=== PATIENT | female | born 1975 | race Caucasian/White ===

== ENCOUNTER 2017-11-15 08:22 | Emergency (ER) | payer OTHER ==
[2017-11-15 08:32] VITALS: BP 126/80
--- NOTE | 2017-11-15 08:39 | ED Physician Documentation ---
History of Present Illness - Stated complaint Stated Complaint: FEVER/SORE THROAT - Chief complaint Chief Complaint: Heent - Additonal information Additional information: hx from pt healthy not 42 female sore throat fever myalgias no cough NVD no sick contacts Review of Systems Constitutional: reports: Fever, Myalgias Throat: reports: Sore throat Respiratory: denies: Cough GI: denies: Abdominal Pain, Nausea, Vomiting, Diarrhea : denies: Now EGA (denies) Skin: denies: Rash Neurologic: reports: Headache Immunocompromised: denies: Immunocompromised PD PAST MEDICAL HISTORY - Past Medical History Past Medical History: Yes Cardiovascular: None Respiratory: None Neuro: Headache/migraine Endocrine/Autoimmune: None GI: None : None HEENT: None Psych: Depression, Anxiety Musculoskeletal: None Derm: None - Past Surgical History Past Surgical History: Yes 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, 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 HEENT: Other Derm: Skin cancer surgery - Present Medications Home Medications: Ambulatory Orders Medication Instructions Recorded Confirmed Atenolol 25 mg PO DAILY 07/20/14 11/15/17 Citalopram [CeleXA] 10 mg PO DAILY 07/20/14 11/15/17 buPROPion [Wellbutrin Xl] 150 mg PO DAILY 07/20/14 11/15/17 Amoxicillin 500 mg PO Q8H #30 capsule 11/15/17 Dextromethorphan/Benzocaine 1 each PO Q4H PRN #20 lozenge 11/15/17 [Cepacol Sorethroat-Cough [place]] - Allergies Allergies/Adverse Reactions: Allergies Allergy/AdvReac Type Severity Reaction Status Date / Time shellfish derived AdvReac Severe Anaphylaxis Verified 11/15/17 08:33 - Social History Does the pt smoke?: No Smoking Status: Never smoker Does the pt drink ETOH?: No Does the pt have substance abuse?: No - Immunizations Immunizations are current?: Yes - POLST Patient has POLST: No PD ED PE NORMAL - Vitals Vital signs reviewed: Yes - General General: Alert and oriented X 3 - HEENT HEENT: PERRL. 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 No: No adenopathy (anterior L . R no posterior ) - Cardiac Cardiac: RRR - Respiratory Respiratory: No respiratory distress, Clear bilaterally - Abdomen Abdomen: Soft, Non tender, No organomegaly - Derm Derm: Normal color - Neuro Neuro: Alert and oriented X 3 Results - Vitals Vitals: Vital Signs - 24 hr 11/15/17 08:22 Temperature 37 C Heart Rate 120 H Respiratory 18 Rate Blood Pressure 126/80 O2 Saturation 95 Oxygen O2 Source Room air PD MEDICAL DECISION MAKING - ED course ED course: meets centor criteria - will tx no cough or GI sx to suggest influenza - and would not merit tamiflu as she is healthy and not HR notes and felt 2/2 pain and perhaps some dehydration - s/sx not concerning for sepsis Departure - Departure Disposition: Home, Self Care Clinical Impression: Pharyngitis, acute Qualifiers: Pharyngitis/tonsillitis etiology: streptococcus Qualified Code(s): J02.0 - Streptococcal pharyngitis Condition: Good Instructions: ED Strep Pharyngitis Poss Follow-Up: [facility] [Primary Care Provider] - Prescriptions: Amoxicillin 500 mg PO Q8H #30 capsule Dextromethorphan/Benzocaine [Cepacol Sorethroat-Cough [place]] 1 each PO Q4H PRN # 20 lozenge PRN Reason: sore throat Comments: Tylenol and motrin for pain and fever Drink plenty of fluids Follow up with your PMD if not better Return to the ER if worse Forms: Activity restrictions
== END 2017-11-15 08:50 | disposition home or self-care (01) ==
LOC: ED 08:22
DX: J02.0 Streptococcal pharyngitis (principal); E86.0 Dehydration
CPT/HCPCS: 87430; 99283

== ENCOUNTER 2017-11-23 17:27 | Emergency (ER) | payer OTHER ==
[2017-11-23 17:35] VITALS: BP 115/68
--- NOTE | 2017-11-23 18:06 | XRAY Report ---
EXAM: LEFT ANKLE RADIOGRAPHY EXAM DATE: 11/23/2017 05:57 PM. CLINICAL HISTORY: Pain and swelling. S/p surgical repair with pins. COMPARISON: 07/20/2014. TECHNIQUE: 3 views. FINDINGS: Bones: Trimalleolar fracture fixation with fracture lines no longer visible. Intact fibular plate and multiple screws, with lucency along the long transverse screw from fibular plate into the tibia. Joints: Normal. No effusion. No subluxations. The ankle mortise is normally aligned. Soft Tissues: Unremarkable. IMPRESSION: Lucency along the long transverse screw possibly representing loosening. [facility] Referring Provider Line: [phone] SITE ID: [id number]
[2017-11-23 20:09] LABS: BASOPHILS # (AUTO) 0.1 10^3/uL (0.0-0.1); EOSINOPHILS # (AUTO) 0.2 10^3/uL (0.0-0.7); EOSINOPHILS % (AUTO) 1.9 %; HGB - HEMOGLOBIN 11.6 g/dL (12.0-16.0); LYMPHOCYTES # (AUTO) 3.3 10^3/uL (1.5-3.5); LYMPHOCYTES % (AUTO) 37.6 %; MEAN CORPUSCULAR HEMOGLOBIN 23.5 pg (27.0-31.0); MEAN CORPUSCULAR HGB CONC 31.4 g/dL (32.0-36.0); MEAN CORPUSCULAR VOLUME 74.7 fL (81.0-99.0); MONOCYTES # (AUTO) 0.6 10^3/uL (0.0-1.0); MONOCYTES % (AUTO) 6.3 %; NEUTROPHILS # (AUTO) 4.7 10^3/uL (1.5-6.6); NEUTROPHILS % (AUTO) 53.2 %; PLT - PLATELET COUNT 445 10^3/uL (130-450); RED BLOOD COUNT 4.96 10^6/uL (4.20-5.40); RED CELL DISTRIBUTION WIDTH 15.9 % (12.0-15.0); WHITE BLOOD COUNT 8.7 x10^3/uL (4.8-10.8)
[2017-11-23 20:26] LABS: BUN - BLOOD UREA NITROGEN 14 mg/dL (6-20); CALCIUM 8.9 mg/dL (8.5-10.3); CARBON DIOXIDE - CO2 24 mmol/L (21-32); CHLORIDE 105 mmol/L (101-111); CREATININE 0.8 mg/dL (0.4-1.0); GFR - MDRD 79 (>89); GLUCOSE 100 mg/dL (70-100); SODIUM 136 mmol/L (135-145)
[2017-11-23 20:30] LABS: CRP - C-REACTIVE PROTEIN < 1.0 mg/dL (0-1.0)
--- NOTE | 2017-11-23 20:57 | ED Physician Documentation ---
History of Present Illness - Stated complaint Stated Complaint: LT ANKLE SWELLING/PX - Chief complaint Chief Complaint: Ext Problem - History obtained from History obtained from: Patient, Family - History of Present Illness Timing: Today Pain level max: 5 Pain level now: 3 Improved by: rest Worsened by: walking - Additonal information Additional information: Patient is a 42-year-old female who presents to the emergency department after she sustained a trimalleolar fracture several years ago and underwent open reduction internal fixation. Over the past day or so she has had increasing pain in the left ankle and noticed some swelling. [place] that there is mild erythema to the skin as well. No fevers. She was recently treated with amoxicillin for a throat infection. 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 HEENT: Other Derm: Skin cancer surgery - Present Medications Home Medications: Ambulatory Orders Medication Instructions Recorded Confirmed Atenolol 25 mg PO DAILY 07/20/14 11/23/17 Citalopram [CeleXA] 10 mg PO DAILY 07/20/14 11/23/17 buPROPion [Wellbutrin Xl] 150 mg PO DAILY 07/20/14 11/23/17 Amoxicillin 500 mg PO Q8H #30 capsule 11/15/17 11/23/17 Cetirizine [ZyrTEC] 10 mg PO DAILY 11/23/17 11/23/17 - Allergies Allergies/Adverse Reactions: Allergies Allergy/AdvReac Type Severity Reaction Status Date / Time shellfish derived AdvReac Severe Anaphylaxis Verified 11/23/17 19:18 - Social History Does the pt smoke?: No Smoking Status: Never smoker Does the pt drink ETOH?: No Does the pt have substance abuse?: No - Immunizations Immunizations are current?: Yes - POLST Patient has POLST: No PD ED PE NORMAL - Vitals Vital signs reviewed: Yes - General General: Alert and oriented X 3, No acute distress - Derm Derm: Warm and dry - Extremities Extremities: Other (L ankle - mild swelling. no skin changes in coloration or temperature. No drainage. good ROM without significant pain.) - Neuro Neuro: Alert and oriented X 3 Results - Vitals Vitals: Vital Signs - 24 hr 11/23/17 17:31 Temperature 36.7 C Heart Rate 81 Respiratory 16 Rate Blood Pressure 115/68 O2 Saturation 98 Oxygen O2 Source Room air - Labs Labs: Laboratory Tests 11/23/17 11/23/17 11/23/17 19:58 19:58 19:58 WBC 8.7 RBC 4.96 Hgb 11.6 L Hct 37.1 MCV 74.7 L MCH 23.5 L MCHC 31.4 L RDW 15.9 H Plt Count 445 MPV 7.0 L Neut # 4.7 Lymph # 3.3 [place] # 0.6 Eos # 0.2 Baso # 0.1 Absolute Nucleated RBC 0.00 Nucleated RBC % 0.0 ESR 29 H Sodium 136 Potassium 4.2 Chloride 105 Carbon Dioxide 24 Anion Gap 7.0 BUN 14 Creatinine 0.8 Estimated GFR (MDRD) 79 L Glucose 100 Calcium 8.9 C-Reactive Protein < 1.0 - Rads (name of study) L ankle xray Radiology: Prelim report reviewed, EMP read contemporaneously, See rad report ( Lucency along the long transverse screw possibly representing loosening. ) PD MEDICAL DECISION MAKING - ED course Complexity details: reviewed results, re-evaluated patient, considered differential, d/w patient, d/w intelligence consultant ED course: Patient is a 42-year-old female presents to the emergency department with left ankle pain after having an ORIF from a trimalleolar fracture or several years ago. No evidence of septic joint. No evidence of overlying cellulitis. Discussed the case with orthopedics Dr. Hyde, who recommends follow-up in the office. Patient is comfortable with this plan. Declines pain medication here or for home. Patient counseled regarding signs and symptoms for which I believe and urgent re-evaluation would be necessary. Patient with good understanding of and agreement to plan and is comfortable going home at this time This document was made in part using voice recognition software. While efforts are made to proofread this document, sound alike and grammatical errors may occur. Departure - Departure Disposition: Home, Self Care Clinical Impression: Loosening of orthopedic screw Condition: Good Follow-Up: [facility] [Provider Group] - Within 1 week Comments: Return if you worsen especially fevers, worsening pain or redness. You need to follow up with orthopedics for further evaluation of the loose screw as this may be causing your pain. Discharge Date/Time: 11/23/17 21:07
== END 2017-11-23 21:07 | disposition home or self-care (01) ==
LOC: ED 17:27
DX: T84.218A Breakdown (mechanical) of internal fixation device of other bones, initial encounter (principal)
CPT/HCPCS: 36415; 80048; 85025; 85651; 86140; 99282; 99283

== ENCOUNTER 2018-05-15 18:13 | Emergency (ER) | payer OTHER ==
[2018-05-15 18:19] VITALS: BP 118/100
[2018-05-15] MEDS ORDERED: AMOX/CLAV 875 MG/125 MG TABLET PO STA (18:26)
--- NOTE | 2018-05-15 18:28 | ED Physician Documentation ---
PD HPI HEENT - Stated complaint Stated Complaint: SINUS INFECTION/PX - Chief complaint Chief Complaint: Heent - History obtained from History obtained from: Patient - History of Present Illness Timing - onset: Other (Earlier in the month had strep throat s/p 10 days PCN. Got better but now with >1 week L adenopathy and ear pain. No fevers. No congestion, no hearing loss.) Review of Systems Constitutional: denies: Fever, Chills Ears: reports: Ear pain. 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 HEENT: Other Derm: Skin cancer surgery - Present Medications Home Medications: Ambulatory Orders Medication Instructions Recorded Confirmed Atenolol 25 mg PO DAILY 07/20/14 11/23/17 Citalopram [CeleXA] 10 mg PO DAILY 07/20/14 11/23/17 buPROPion [Wellbutrin Xl] 150 mg PO DAILY 07/20/14 11/23/17 Amoxicillin 500 mg PO Q8H #30 capsule 11/15/17 11/23/17 Cetirizine [ZyrTEC] 10 mg PO DAILY 11/23/17 11/23/17 Amox/Clav 875/125 [Augmentin] 1 each PO Q12H #20 tablet 05/15/18 Guaifenesin/Pseudoephedrne HCl 1 each PO BID PRN #20 tab.er.12h 05/15/18 [Mucinex D ER 600-60 mg Tablet] - Allergies Allergies/Adverse Reactions: Allergies Allergy/AdvReac Type Severity Reaction Status Date / Time shellfish derived AdvReac Severe Anaphylaxis Verified 11/23/17 19:18 - Social History Does the pt smoke?: No Smoking Status: Never smoker Does the pt drink ETOH?: No Does the pt have substance abuse?: No - Immunizations Immunizations are current?: Yes - POLST Patient has POLST: No PD ED PE NORMAL - Vitals Vital signs reviewed: Yes - General General: Alert and oriented X 3, No acute distress - HEENT HEENT: Other (L TM retracted. No otitis though. The throat looks normal save for mild peritonsillar redness but no asymmetry. She does have a tender submandibular gland on the left. No facial swelling or facial cellulitis. No neck stiffness.) - Neck Neck: Supple, no meningeal sign, No bony TTP - Neuro Neuro: Alert and oriented X 3, Normal speech - Psych Psych: Normal mood, Normal affect Results - Vitals Vitals: Vital Signs - 24 hr 05/15/18 18:15 Temperature 36.5 C Heart Rate 84 Respiratory 18 Rate Blood Pressure 118/100 H O2 Saturation 100 Oxygen O2 Source Room air PD MEDICAL DECISION MAKING - Sepsis Event Vital Signs: Vital Signs - 24 hr 05/15/18 18:15 Temperature 36.5 C Heart Rate 84 Respiratory 18 Rate Blood Pressure 118/100 H O2 Saturation 100 Oxygen O2 Source Room air Departure - Departure Disposition: Home, Self Care Clinical Impression: Lymphadenitis Condition: Good Record reviewed to determine appropriate education?: Yes Instructions: ED Cervical Adenitis Abx Tx Prescriptions: Amox/Clav 875/125 [Augmentin] 1 each PO Q12H #20 tablet Guaifenesin/Pseudoephedrne HCl [Mucinex D ER 600-60 mg Tablet] 1 each PO BID PRN #20 tab.er.12h PRN Reason: congestion Comments: Call your doctor to arrange a follow-up appointment, make the next available appointment. In the interim, return anytime if worse or if new symptoms develop. Your blood pressure was elevated today on check into the emergency department. This does not mean that you have hypertension, it is a common phenomenon to come to the emergency department and have elevated blood pressure. I recommend that you see your primary care physician within the week to have it rechecked when you are feeling better.
== END 2018-05-15 18:34 | disposition home or self-care (01) ==
LOC: ED 18:13
DX: I88.9 Nonspecific lymphadenitis, unspecified (principal); R03.0 Elevated blood-pressure reading, without diagnosis of hypertension
CPT/HCPCS: 99283; A9270

== ENCOUNTER 2019-04-16 17:34 | Emergency (ER) | payer OTHER ==
--- NOTE | 2019-04-16 17:58 | ED Physician Documentation ---
PD HPI CHEST PAIN - Stated complaint Stated Complaint: SOA/CP,R SHOULDER PX - Chief complaint Chief Complaint: Abd Pain - History obtained from History obtained from: Patient - History of Present Illness Timing - onset: Today Timing - onset during: Light activity Timing - duration: Minutes (30) Timing - details: Abrupt onset Severity Comments: Pain is essentially gone now Quality: Sharp Location: Substernal Radiation: Other (Right shoulder) Improved by: Nothing Associated symptoms: Shortness of air, Diaphoresis, Nausea. 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 She felt very short of breath with that she felt like she needed to burp she was really sweaty and clammy so she thought she might need to go to the bathroom she went into the bathroom and tried to poop but was not able to and it did not seem to alleviate the pain. Pain was about a 5-6 out of 10. The onset was about 30 minutes ago when she got frightened enough that she decided to come into the emergency department. The pain is now resolved but she still has some discomfort in the right shoulder. She never vomited. She is never had anything like this before. She did not feel dizzy. Couple days ago she had a little sore throat but that has been fine and her daughter was seen here in the emergency department this morning and diagnosed with an ear infection. Pain did radiate to her back right around the bra strap. She had eaten approximately 8 hours prior to the onset of the pain. Does not have a history of reflux. Review of Systems Constitutional: reports: Sweats. denies: Fever, Chills Nose: denies: Congestion Throat: reports: Sore throat Cardiac: reports: Chest pain / pressure, Palpitations Respiratory: reports: Dyspnea. denies: Cough GI: reports: Abdominal Pain, Nausea. denies: Vomiting, Diarrhea : reports: Other (Denies stating that she status post tubal ligation). 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 HEENT: Other Derm: Skin cancer surgery - Present Medications Home Medications: Ambulatory Orders Medication Instructions Recorded Confirmed Atenolol 25 mg PO DAILY 07/20/14 11/23/17 Citalopram [CeleXA] 10 mg PO DAILY 07/20/14 11/23/17 buPROPion [Wellbutrin Xl] 150 mg PO DAILY 07/20/14 11/23/17 Amoxicillin 500 mg PO Q8H #30 capsule 11/15/17 11/23/17 Cetirizine [ZyrTEC] 10 mg PO DAILY 11/23/17 11/23/17 Amox/Clav 875/125 [Augmentin] 1 each PO Q12H #20 tablet 05/15/18 Guaifenesin/Pseudoephedrne HCl 1 each PO BID PRN #20 tab.er.12h 05/15/18 [Mucinex D ER 600-60 mg Tablet] - Allergies Allergies/Adverse Reactions: Allergies Allergy/AdvReac Type Severity Reaction Status Date / Time shellfish derived AdvReac Severe Anaphylaxis Verified 04/16/19 17:38 - Social History Does the pt smoke?: No Smoking Status: Never smoker Does the pt drink ETOH?: No Does the pt have substance abuse?: No - Immunizations Immunizations are current?: Yes - POLST Patient has POLST: No PD ED PE NORMAL - Vitals Vital signs reviewed: Yes - General General: Alert and oriented X 3, No acute distress, Well developed/nourished, Other (Patient is upset and actually crying.) - HEENT HEENT: Atraumatic, PERRL - Cardiac Cardiac: RRR, No murmur - Respiratory Respiratory: No respiratory distress, Clear bilaterally - Abdomen Abdomen: Normal bowel sounds, Soft, Non tender, Other (Obese) - Back Back: No CVA TTP - Derm Derm: Normal color, Warm and dry, No rash - Extremities Extremities: No deformity - Neuro Neuro: Alert and oriented X 3, No motor deficit, No sensory deficit, Normal speech Results - Vitals Vitals: Vital Signs - 24 hr 04/16/19 04/16/19 04/16/19 17:35 17:58 19:52 Temperature 36.9 C 36.7 C Heart Rate 94 78 83 Respiratory 22 20 17 Rate Blood Pressure 128/78 135/80 H 125/68 O2 Saturation 100 99 100 Oxygen O2 Source Room air - EKG (time done) 1747 Rate: Rate (enter#) Rhythm: NSR Ischemia: Normal ST segments Other comments: Other comments (Inverted P wave in lead aVF And V3 through V6) Compare to prior EKG: Old EKG unavailable - Labs Labs: Laboratory Tests 04/16/19 04/16/19 04/16/19 18:41 18:51 18:51 WBC 11.2 H RBC 4.55 Hgb 10.7 L Hct 34.6 L MCV 76.1 L MCH 23.5 L MCHC 30.9 L RDW 16.1 H Plt Count 391 MPV 7.5 L Neut # (Auto) 8.3 H Lymph # (Auto) 2.0 [place] # (Auto) 0.6 Eos # (Auto) 0.3 Baso # (Auto) 0.1 Absolute Nucleated RBC 0.00 Nucleated RBC % 0.0 Sodium 135 Potassium 4.2 Chloride 103 Carbon Dioxide 23 Anion Gap 9.0 BUN 12 Creatinine 0.8 Estimated GFR (MDRD) 78 L Glucose 124 H Calcium 8.8 Total Bilirubin 0.8 AST 77 H ALT 34 Alkaline Phosphatase 108 Troponin I Total Protein 7.7 Albumin 3.8 Globulin 3.9 Albumin/Globulin Ratio 1.0 Lipase 45 Urine Color YELLOW Urine Clarity CLEAR Urine pH 6.5 Ur Specific [place] 1.020 Urine Protein NEGATIVE Urine Glucose (UA) NEGATIVE Urine Ketones NEGATIVE Urine Occult Blood NEGATIVE Urine Nitrite NEGATIVE Urine Bilirubin NEGATIVE Urine Urobilinogen 0.2 (NORMAL) Ur Leukocyte Esterase NEGATIVE Ur Microscopic Review NOT INDICATED Urine Culture Comments NOT INDICATED 04/16/19 18:51 WBC RBC Hgb Hct MCV MCH MCHC RDW Plt Count MPV Neut # (Auto) Lymph # (Auto) [place] # (Auto) Eos # (Auto) Baso # (Auto) Absolute Nucleated RBC Nucleated RBC % Sodium Potassium Chloride Carbon Dioxide Anion Gap BUN Creatinine Estimated GFR (MDRD) Glucose Calcium Total Bilirubin AST ALT Alkaline Phosphatase Troponin I < 0.04 Total Protein Albumin Globulin Albumin/Globulin Ratio Lipase Urine Color Urine Clarity Urine pH Ur Specific [place] Urine Protein Urine Glucose (UA) Urine Ketones Urine Occult Blood Urine Nitrite Urine Bilirubin Urine Urobilinogen Ur Leukocyte Esterase Ur Microscopic Review Urine Culture Comments PD MEDICAL DECISION MAKING - ED course Complexity details: re-evaluated patient, d/w patient, d/w family ED course: Patient had an IV started and was given Pepcid 20 mg IV. Her abdominal pain was essentially gone by the time she arrived in the emergency department anyway she was still having some right shoulder discomfort but no pain with palpation. Her AST was very minimally elevated but normal white blood cell count normal bilirubin and normal lipase. Chest x-ray showed some gas in the bowel just under the diaphragm but no acute changes. Results of the labs and the x-ray were discussed with the patient. I have encouraged her to follow-up with her primary care provider and consideration of gallbladder ultrasound and avoiding fatty, fried or spicy foods. Would also consider use of MiraLAX or laxativeTo help clear out the bowels. Departure - Departure Disposition: 01 Home, Self Care Clinical Impression: Abdominal pain Qualifiers: Abdominal location: right upper quadrant Qualified Code(s): R10.11 - Right upper quadrant pain Condition: Good Instructions: ED Abdominal Pain Unkn Cause Follow-Up: [facility] [Provider Group] Comments: Avoid fatty, fried or overly spicy foods. You can try to take a laxative or MiraLAX to help clear the bowel for constipation. I would recommend follow-up with your primary care provider especially if you have recurrent symptoms because you may need to have an ultrasound done on your gallbladder to ensure that you do not have gallstones. Return if the pain returns and lasts for longer than 30 minutes or is associated with fever, vomiting or other problems.
[2019-04-16] MEDS ORDERED: FAMOTIDINE 20 MG/2 ML VIAL IVP STA (18:20)
[2019-04-16 18:56] LABS: BILIRUBIN,URINE NEGATIVE (NEGATIVE); CLARITY,URINE CLEAR (CLEAR); GLUCOSE, URINE (UA) NEGATIVE (NEGATIVE); KETONES,URINE (UA) NEGATIVE (NEGATIVE); LEUKOCYTE ESTERASE, URINE NEGATIVE (NEGATIVE); NITRITE,URINE NEGATIVE (NEGATIVE); OCCULT BLOOD,URINE NEGATIVE (NEGATIVE); PH,URINE 6.5 PH (5.0-7.5); PROTEIN,URINE NEGATIVE (NEGATIVE); UROBILINOGEN,URINE 0.2 (NORMAL) E.U./dL (NORMAL)
--- NOTE | 2019-04-16 18:59 | XRAY Report ---
Reason: cough Procedure Date: 04/16/2019 Accession Number: [id number] / [id number] Procedure: XR - Chest 2 View X-Ray CPT Code: 06484 FULL RESULT: EXAM: CHEST RADIOGRAPHY EXAM DATE: 04/16/2019 06:46 PM. CLINICAL HISTORY: Cough. Chest pain. COMPARISON: None. TECHNIQUE: 2 views. FINDINGS: Lungs/Pleura: No focal opacities evident. No pleural effusion. No pneumothorax. Normal volumes. Mediastinum: Heart and mediastinal contours are unremarkable. Other: Mild degenerative changes of the thoracic spine. IMPRESSION: 1. No acute disease in the chest. [facility]
[2019-04-16 19:04] LABS: BASOPHILS # (AUTO) 0.1 10^3/uL (0.0-0.1); BASOPHILS % (AUTO) 0.5 %; EOSINOPHILS # (AUTO) 0.3 10^3/uL (0.0-0.7); EOSINOPHILS % (AUTO) 2.4 %; HGB - HEMOGLOBIN 10.7 g/dL (12.0-16.0); LYMPHOCYTES % (AUTO) 17.7 %; MEAN CORPUSCULAR HEMOGLOBIN 23.5 pg (27.0-31.0); MEAN CORPUSCULAR HGB CONC 30.9 g/dL (32.0-36.0); MEAN CORPUSCULAR VOLUME 76.1 fL (81.0-99.0); MEAN PLATELET VOLUME 7.5 fL (7.9-10.8); MONOCYTES # (AUTO) 0.6 10^3/uL (0.0-1.0); NEUTROPHILS # (AUTO) 8.3 10^3/uL (1.5-6.6); NEUTROPHILS % (AUTO) 74.4 %; PLT - PLATELET COUNT 391 10^3/uL (130-450); RED BLOOD COUNT 4.55 10^6/uL (4.20-5.40); RED CELL DISTRIBUTION WIDTH 16.1 % (12.0-15.0); WHITE BLOOD COUNT 11.2 x10^3/uL (4.8-10.8)
[2019-04-16 19:18] LABS: ALBUMIN 3.8 g/dL (3.2-5.5); BILIRUBIN,TOTAL 0.8 mg/dL (0.2-1.0); CALCIUM 8.8 mg/dL (8.5-10.3); CREATININE 0.8 mg/dL (0.4-1.0); TOTAL PROTEIN 7.7 g/dL (6.7-8.2)
[2019-04-16 20:26] VITALS: BP 119/75
== END 2019-04-16 20:27 | disposition home or self-care (01) ==
LOC: ED 17:34
DX: R10.11 Right upper quadrant pain (principal); M25.511 Pain in right shoulder
CPT/HCPCS: 36415; 71046; 80053; 81001; 81003; 83690; 84484; 85025; 87086; 93005; 96374; 99283

== ENCOUNTER 2019-05-09 18:24 | Emergency (ER) | payer OTHER ==
[2019-05-09 18:28] VITALS: BP 132/96
--- NOTE | 2019-05-09 18:46 | ED Physician Documentation ---
PD HPI URI - Stated complaint Stated Complaint: LT EAR PX - Chief complaint Chief Complaint: Heent - History obtained from History obtained from: Patient - History of Present Illness Timing - onset: Today (She has had pain from the left ear and echoing in her hearing just on the left today without other URI symptoms or fevers.) Review of Systems Constitutional: denies: Fever, Chills Eyes: denies: Loss of vision, Decreased vision Nose: denies: Rhinorrhea / runny nose, Congestion PD PAST MEDICAL HISTORY - Past Medical History Cardiovascular: None Respiratory: None Endocrine/Autoimmune: None GI: None : None HEENT: None Psych: Depression, Anxiety Musculoskeletal: None Derm: None - Past Surgical History Past Surgical History: Yes 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, 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 HEENT: Other Derm: Skin cancer surgery - Present Medications Home Medications: Ambulatory Orders Medication Instructions Recorded Confirmed Atenolol 25 mg PO DAILY 07/20/14 11/23/17 Citalopram [CeleXA] 10 mg PO DAILY 07/20/14 11/23/17 buPROPion [Wellbutrin Xl] 150 mg PO DAILY 07/20/14 11/23/17 Amoxicillin 500 mg PO Q8H #30 capsule 11/15/17 11/23/17 Cetirizine [ZyrTEC] 10 mg PO DAILY 11/23/17 11/23/17 Amox/Clav 875/125 [Augmentin] 1 each PO Q12H #20 tablet 05/15/18 Guaifenesin/Pseudoephedrne HCl 1 each PO BID PRN #20 tab.er.12h 05/15/18 [Mucinex D ER 600-60 mg Tablet] Neomycin/Polymyx/Hc Otic Drops 4 drops OT TID #1 bottle 05/09/19 [Cortisporin Ear Susp] - Allergies Allergies/Adverse Reactions: Allergies Allergy/AdvReac Type Severity Reaction Status Date / Time shellfish derived AdvReac Severe Anaphylaxis Verified 04/16/19 17:38 - Social History Does the pt smoke?: No Smoking Status: Never smoker Does the pt drink ETOH?: No Does the pt have substance abuse?: No - Immunizations Immunizations are current?: Yes - POLST Patient has POLST: No PD ED PE NORMAL - Vitals Vital signs reviewed: Yes - General General: Alert and oriented X 3, No acute distress - HEENT HEENT: Other (Left external otitis without mastoid tenderness. TMs are normal. Oropharynx is normal.) - Neck Neck: Supple, no meningeal sign, No bony TTP - Neuro Neuro: Alert and oriented X 3, Normal speech Results - Vitals Vitals: Vital Signs - 24 hr 05/09/19 18:26 Temperature 36.6 C Heart Rate 100 Respiratory 16 Rate Blood Pressure 132/96 H O2 Saturation 98 Oxygen O2 Source Room air Departure - Departure Disposition: Home, Self Care Clinical Impression: External otitis of left ear Qualifiers: Otitis externa type: other infective Chronicity: acute Qualified Code(s): H60.392 - Other infective otitis externa, left ear Condition: Good Record reviewed to determine appropriate education?: Yes Health Concerns: Left ear pain Plan of Treatment: Topical antibiotic/anti-inflammatory drops in the left ear Instructions: ED Otitis Externa Prescriptions: Neomycin/Polymyx/Hc Otic Drops [Cortisporin Ear Susp] 4 drops OT TID #1 bottle Comments: Call your doctor to arrange a follow-up appointment, make the next available appointment. In the interim, return anytime if worse or if new symptoms develop.
== END 2019-05-09 18:50 | disposition home or self-care (01) ==
LOC: ED 18:24
DX: H60.392 Other infective otitis externa, left ear (principal)
CPT/HCPCS: 99283

== ENCOUNTER 2019-08-08 17:48 | Emergency (ER) | payer OTHER ==
[2019-08-08 18:07] LABS: BASOPHILS # (AUTO) 0.1 10^3/uL (0.0-0.1); BASOPHILS % (AUTO) 0.5 %; EOSINOPHILS # (AUTO) 0.2 10^3/uL (0.0-0.7); EOSINOPHILS % (AUTO) 2.6 %; HGB - HEMOGLOBIN 10.5 g/dL (12.0-16.0); LYMPHOCYTES # (AUTO) 2.8 10^3/uL (1.5-3.5); LYMPHOCYTES % (AUTO) 30.2 %; MEAN CORPUSCULAR HEMOGLOBIN 23.1 pg (27.0-31.0); MEAN CORPUSCULAR HGB CONC 29.7 g/dL (32.0-36.0); MEAN CORPUSCULAR VOLUME 77.8 fL (81.0-99.0); MEAN PLATELET VOLUME 9.5 fL (7.9-10.8); MONOCYTES # (AUTO) 0.7 10^3/uL (0.0-1.0); MONOCYTES % (AUTO) 7.2 %; NEUTROPHILS # (AUTO) 5.5 10^3/uL (1.5-6.6); PLT - PLATELET COUNT 428 10^3/uL (130-450); RED BLOOD COUNT 4.54 10^6/uL (4.20-5.40); RED CELL DISTRIBUTION WIDTH 16.8 % (12.0-15.0); WHITE BLOOD COUNT 9.3 x10^3/uL (4.8-10.8)
[2019-08-08 18:20] LABS: BILIRUBIN,URINE NEGATIVE (NEGATIVE); GLUCOSE, URINE (UA) NEGATIVE (NEGATIVE); KETONES,URINE (UA) NEGATIVE (NEGATIVE); LEUKOCYTE ESTERASE, URINE NEGATIVE (NEGATIVE); NITRITE,URINE NEGATIVE (NEGATIVE); OCCULT BLOOD,URINE NEGATIVE (NEGATIVE); PH,URINE 5.5 PH (5.0-7.5); PROTEIN,URINE NEGATIVE (NEGATIVE); UROBILINOGEN,URINE 0.2 (NORMAL) E.U./dL (NORMAL)
[2019-08-08 18:20] LABS: ALBUMIN 3.9 g/dL (3.2-5.5); BILIRUBIN,TOTAL 0.7 mg/dL (0.2-1.0); CREATININE 0.7 mg/dL (0.4-1.0); TOTAL PROTEIN 7.8 g/dL (6.7-8.2)
[2019-08-08 18:23] LABS: CLARITY,URINE CLEAR (CLEAR); HCG UR QUAL NEGATIVE
[2019-08-08] MEDS ORDERED: NAPROXEN 250 MG TABLET PO STA (18:24)
--- NOTE | 2019-08-08 18:27 | ED Physician Documentation ---
PD HPI ABD PAIN - Stated complaint Stated Complaint: S/P GALLBLADDER SX PX - Chief complaint Chief Complaint: Abd Pain - History obtained from History obtained from: Patient - History of Present Illness Timing - onset: Today (She is a week out from a laparoscopic cholecystectomy. She was doing well postop until today and she developed right upper quadrant pain/chest pain that is much worse if she takes a deep breath. She denies nausea. She is mildly constipated but moving her bowels. No shortness of breath or fevers.) Review of Systems Ten Systems: 10 systems reviewed and negative Constitutional: denies: Fever, Chills Cardiac: reports: Chest pain / pressure. 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 HEENT: Other Derm: Skin cancer surgery - Present Medications Home Medications: Ambulatory Orders Medication Instructions Recorded Confirmed Atenolol 25 mg PO DAILY 07/20/14 11/23/17 Citalopram [CeleXA] 10 mg PO DAILY 07/20/14 11/23/17 buPROPion [Wellbutrin Xl] 150 mg PO DAILY 07/20/14 11/23/17 Amoxicillin 500 mg PO Q8H #30 capsule 11/15/17 11/23/17 Cetirizine [ZyrTEC] 10 mg PO DAILY 11/23/17 11/23/17 Amox/Clav 875/125 [Augmentin] 1 each PO Q12H #20 tablet 05/15/18 Guaifenesin/Pseudoephedrne HCl 1 each PO BID PRN #20 tab.er.12h 05/15/18 [Mucinex D ER 600-60 mg Tablet] Neomycin/Polymyx/Hc Otic Drops 4 drops OT TID #1 bottle 05/09/19 [Cortisporin Ear Susp] - Allergies Allergies/Adverse Reactions: Allergies Allergy/AdvReac Type Severity Reaction Status Date / Time shellfish derived AdvReac Severe Anaphylaxis Verified 08/08/19 17:55 - Social History Does the pt smoke?: No Smoking Status: Never smoker Does the pt drink ETOH?: No Does the pt have substance abuse?: No - Family History Family history: reports: Non contributory - Immunizations Immunizations are current?: Yes - POLST Patient has POLST: No PD ED PE NORMAL - Vitals Vital signs reviewed: Yes - General General: Alert and oriented X 3, Other (She winces with deep breathing, otherwise in no distress at rest.) - HEENT HEENT: PERRL, EOMI - Neck Neck: Supple, no meningeal sign, No bony TTP - Cardiac Cardiac: RRR, No murmur - Respiratory Respiratory: No respiratory distress, Clear bilaterally - Abdomen Abdomen: Other (Minimal and appropriate right-sided abdominal tenderness with clean dry and intact laparoscopic incisions) - Back Back: No CVA TTP, No spinal TTP - Derm Derm: Normal color, Warm and dry - Extremities Extremities: No edema, No calf tenderness / cord - Neuro Neuro: Alert and oriented X 3, Normal speech Results - Vitals Vitals: Vital Signs - 24 hr 08/08/19 17:54 Temperature 36.5 C Heart Rate 86 Respiratory 18 Rate Blood Pressure 124/82 H O2 Saturation 100 Oxygen O2 Source Room air - Labs Labs: Laboratory Tests 08/08/19 08/08/19 08/08/19 18:03 18:03 18:12 WBC 9.3 RBC 4.54 Hgb 10.5 L Hct 35.3 L MCV 77.8 L MCH 23.1 L MCHC 29.7 L RDW 16.8 H Plt Count 428 MPV 9.5 Neut # (Auto) 5.5 Lymph # (Auto) 2.8 [place] # (Auto) 0.7 Eos # (Auto) 0.2 Baso # (Auto) 0.1 Absolute Nucleated RBC 0.00 Nucleated RBC % 0.0 Sodium 136 Potassium 4.0 Chloride 102 Carbon Dioxide 25 Anion Gap 9.0 BUN 11 Creatinine 0.7 Estimated GFR (MDRD) 91 Glucose 126 H Calcium 9.0 Total Bilirubin 0.7 AST 19 ALT 19 Alkaline Phosphatase 80 Total Protein 7.8 Albumin 3.9 Globulin 3.9 Albumin/Globulin Ratio 1.0 Lipase 33 Urine Color YELLOW Urine Clarity CLEAR Urine pH 5.5 Ur Specific [place] <=1.005 Urine Protein NEGATIVE Urine Glucose (UA) NEGATIVE Urine Ketones NEGATIVE Urine Occult Blood NEGATIVE Urine Nitrite NEGATIVE Urine Bilirubin NEGATIVE Urine Urobilinogen 0.2 (NORMAL) Ur Leukocyte Esterase NEGATIVE Ur Microscopic Review NOT INDICATED Urine Culture Comments NOT INDICATED Urine HCG, Qual NEGATIVE - Rads (name of study) CTA Chest/CT Abd Radiology: EMP read contemporaneously (NAD) PD MEDICAL DECISION MAKING - ED course ED course: 44-year-old woman with right upper quadrant/right lower chest pain status post surgery. Both PE and postsurgical complication are considered but there is no evidence of same on CT imaging or labs. There was a large volume of stool load in the right upper quadrant to my eye and this is treated with magnesium citrate Departure - Departure Disposition: 01 Home, Self Care Clinical Impression: Chest wall pain following surgery Abdominal pain Qualifiers: Abdominal location: right upper quadrant Qualified Code(s): R10.11 - Right upper quadrant pain Condition: Good Record reviewed to determine appropriate education?: Yes Instructions: Abdominal Pain Comments: As discussed, there is no evidence of blood clots or surgical complication on labs or imaging. Return for new or worsening symptoms. I think with the magnesium citrate she will have a large bowel movement and feel better.
[2019-08-08] MEDS ORDERED: IOVERSOL 320 100 ML VIAL IVP ONE (18:38)
--- NOTE | 2019-08-08 19:50 | CT Report ---
Reason: IV only, RUQ pain s/p cholecystectomy Procedure Date: 08/08/2019 Accession Number: [id number] / [id number] Procedure: CT - ABDOMEN W CPT Code: FULL RESULT: EXAM: CT ABDOMEN EXAM DATE: 08/08/2019 06:59 PM. CLINICAL HISTORY: IV only, RUQ pain s/p cholecystectomy. COMPARISON: None. TECHNIQUE: Routine helical CT imaging was performed through the abdomen. IV contrast: 100 cc Optiray 320 Enteric contrast: No. Reconstruction: Coronal and sagittal. In accordance with CT protocol optimization, one or more of the following dose reduction techniques were utilized for this exam: automated exposure control, adjustment of mA and/or KV based on patient size, or use of iterative reconstructive technique. FINDINGS: Lung Bases: Unremarkable. Liver: Normal. No masses. Gallbladder/Bile Ducts: Surgically absent. No ductal dilation. No fluid collection in the gallbladder fossa. Spleen: Normal. Pancreas: Normal. Adrenal Glands: Normal. Kidneys: Small bilateral cysts. Otherwise unremarkable. No stone or hydronephrosis. Peritoneal Cavity/Bowel: Normal. Scattered trace free air, residual from recent surgery. No free fluid, significant free air, or adenopathy. No masses or acute inflammatory process. Normal appendix. Vasculature: No aneurysms or other significant abnormality. Bones: Partial sacralization of L5 on the left. No pseudarthrosis. Degenerative disk disease at L4-L5. Other: None. IMPRESSION: 1. Postoperative changes with no abnormal fluid collection, abscess, or other apparent complication. 2. Partial transitional vertebra and other chronic or incidental findings. RADIA
--- NOTE | 2019-08-08 20:23 | CT Report ---
Reason: PE protocol, R chest Procedure Date: 08/08/2019 Accession Number: [id number] / [id number] Procedure: CT - ANGIO CHEST W/WO CPT Code: FULL RESULT: EXAM: CT ANGIOGRAM CHEST EXAM DATE: 08/08/2019 06:59 PM. CLINICAL HISTORY: Right-sided chest and abdominal pain after cholecystectomy. COMPARISON: ABDOMEN W/ 08/08/2019 6:49 PM. TECHNIQUE: Routine helical imaging was performed through the chest in the pulmonary arterial phase. IV Contrast: 100 cc Optiray 320. Reconstructions: Coronal 3-D MIP reconstructions.Sagittal and coronal. In accordance with CT protocol optimization, one or more of the following dose reduction techniques were utilized for this exam: automated exposure control, adjustment of mA and/or KV based on patient size, or use of iterative reconstructive technique. FINDINGS: Diagnostic quality: Adequate Pulmonary embolism: None Right heart strain: None Pulmonary arteries: The main pulmonary artery is enlarged. Heart: Unremarkable Aorta: Unremarkable Central airways: Unremarkable Lung parenchyma: Unremarkable Pleural effusion: None Pneumothorax: None Esophagus: Small hiatal hernia. Adenopathy: None Imaged abdomen: Unremarkable Sidewalls: Unremarkable Bones: No suspicious osseous lesions. IMPRESSION: 1. No acute pulmonary embolism. 2. Enlargement of the main pulmonary artery which is nonspecific but can be seen in pulmonary hypertension. 3. Small hiatal hernia. RADIA
[2019-08-08] MEDS ORDERED: MAGNESIUM CITRATE 296 ML BOTTLE PO STA (20:29)
[2019-08-08 20:35] VITALS: BP 126/76
== END 2019-08-08 20:37 | disposition home or self-care (01) ==
LOC: ED 17:48
DX: R10.11 Right upper quadrant pain (principal); R07.89 Other chest pain; K59.00 Constipation, unspecified; Z98.890 Other specified postprocedural states
CPT/HCPCS: 36415; 71275; 74160; 80053; 81003; 81025; 83690; 85025; 99282; 99284; A9270; Q9967; 81001; 87086

== ENCOUNTER 2020-09-28 17:22 | Emergency (ER) | payer OTHER ==
[2020-09-28 17:44] VITALS: BP 129/74
[2020-09-28] MEDS ORDERED: TETANUS/DIPHTHERIA/PERTUSSIS 0.5 ML SYRINGE IM ONE (18:00)
--- NOTE | 2020-09-28 18:01 | ED Physician Documentation ---
History of Present Illness - Stated complaint Stated Complaint: FINGER LAC - Chief complaint Chief Complaint: Laceration - History obtained from History obtained from: Patient - History of Present Illness Timing: Today Pain level max: 1 Pain level now: 0 - Additonal information Additional information: L thumb laceration with a knife while cutting tomatoes. Better with pressure. Worse with movement. 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 HEENT: Other Derm: Skin cancer surgery - Present Medications Home Medications: Ambulatory Orders Medication Instructions Recorded Confirmed Atenolol 25 mg PO DAILY 07/20/14 11/23/17 Citalopram [CeleXA] 10 mg PO DAILY 07/20/14 11/23/17 buPROPion [Wellbutrin Xl] 150 mg PO DAILY 07/20/14 11/23/17 Amoxicillin 500 mg PO Q8H #30 capsule 11/15/17 11/23/17 Cetirizine [ZyrTEC] 10 mg PO DAILY 11/23/17 11/23/17 Amox/Clav 875/125 [Augmentin] 1 each PO Q12H #20 tablet 05/15/18 Guaifenesin/Pseudoephedrne HCl 1 each PO BID PRN #20 tab.er.12h 05/15/18 [Mucinex D ER 600-60 mg Tablet] Neomycin/Polymyx/Hc Otic Drops 4 drops OT TID #1 bottle 05/09/19 [Cortisporin Ear Susp] - Allergies Allergies/Adverse Reactions: Allergies Allergy/AdvReac Type Severity Reaction Status Date / Time shellfish derived AdvReac Severe Anaphylaxis Verified 09/28/20 17:44 - Social History Does the pt smoke?: No Smoking Status: Never smoker Does the pt drink ETOH?: No Does the pt have substance abuse?: No - Immunizations Immunizations are current?: Yes - POLST Patient has POLST: No PD ED PE NORMAL - Vitals Vital signs reviewed: Yes - General General: Alert and oriented X 3, No acute distress - HEENT HEENT: Moist mucous membranes - Derm Derm: Warm and dry - Extremities Extremities: Other (0.2 cm skin avulsion to the distal aspect of the left thumb. Nail is not injured. Neurovascularly intact. Not bleeding) - Neuro Neuro: Alert and oriented X 3 Results - Vitals Vitals: Vital Signs - 24 hr 09/28/20 17:29 Temperature 37.1 C Heart Rate 86 Respiratory 16 Rate Blood Pressure 129/74 O2 Saturation 99 Oxygen O2 Source Room air PD MEDICAL DECISION MAKING - ED course Complexity details: considered differential, d/w patient ED course: Tdap given. Gelfoam applied to the wound. Wound care performed. Warnings of infection and instructions on wound care given at bedside. Also counseled on how to minimize scarring. Patient counseled regarding signs and symptoms for which I believe and urgent re-evaluation would be necessary. Patient with good understanding of and agreement to plan and is comfortable going home at this time This document was made in part using voice recognition software. While efforts are made to proofread this document, sound alike and grammatical errors may occur. Very small and superficial avulsion Departure - Departure Disposition: 01 Home, Self Care Clinical Impression: Avulsion, skin Condition: Good Instructions: ED Laceration All Follow-Up: Anson Vega [Primary Care Provider] - Within 1 week Comments: Return if you worsen. Follow up with your doctor for further care. Discharge Date/Time: 09/28/20 18:19
== END 2020-09-28 18:19 | disposition home or self-care (01) ==
LOC: ED 17:22
DX: S61.012A Laceration without foreign body of left thumb without damage to nail, initial encounter (principal); W26.0XXA Contact with knife, initial encounter; Y93.G1 Activity, food preparation and clean up; Z23 Encounter for immunization
CPT/HCPCS: 90471; 99282; 99283

== ENCOUNTER 2021-10-22 23:36 | Emergency (ER) | payer OTHER ==
--- NOTE | 2021-10-23 00:18 | ED Physician Documentation ---
History of Present Illness - Stated complaint Stated Complaint: RT CALF PX - Chief complaint Chief Complaint: Ext Problem - History obtained from History obtained from: Patient - Additonal information Additional information: 46yF with no pertinent pmh (no pmh dvt, bleeding or clotting disorder), no FH clotting issues, p/w R calf pain sudden onset and constant since about 1330 while walking. patient states she can feel a small area of knot or swelling in the lower calf. no erythema, no warmth. no injury. pain is 4/10, aching, nonradiating. 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 HEENT: Other Derm: Skin cancer surgery - Present Medications Home Medications: Ambulatory Orders Medication Instructions Recorded Confirmed Atenolol 25 mg PO DAILY 07/20/14 11/23/17 Citalopram [CeleXA] 10 mg PO DAILY 07/20/14 11/23/17 buPROPion [Wellbutrin Xl] 150 mg PO DAILY 07/20/14 11/23/17 Amoxicillin 500 mg PO Q8H #30 capsule 11/15/17 11/23/17 Cetirizine [ZyrTEC] 10 mg PO DAILY 11/23/17 11/23/17 Amox/Clav 875/125 [Augmentin] 1 each PO Q12H #20 tablet 05/15/18 Guaifenesin/Pseudoephedrne HCl 1 each PO BID PRN #20 tab.er.12h 05/15/18 [Mucinex D ER 600-60 mg Tablet] Neomycin/Polymyx/Hc Otic Drops 4 drops OT TID #1 bottle 05/09/19 [Cortisporin Ear Susp] - Allergies Allergies/Adverse Reactions: Allergies Allergy/AdvReac Type Severity Reaction Status Date / Time shellfish derived AdvReac Severe Anaphylaxis Verified 10/22/21 23:47 - Social History Does the pt smoke?: No Smoking Status: Never smoker Does the pt drink ETOH?: No Does the pt have substance abuse?: No - Immunizations Immunizations are current?: Yes - POLST Patient has POLST: No PD ED PE NORMAL - Vitals Vital signs reviewed: Yes - General General: Alert and oriented X 3, No acute distress, Well developed/nourished - HEENT HEENT: Atraumatic, PERRL, EOMI - Neck Neck: Supple, no meningeal sign - Derm Derm: Normal color, Warm and dry - Extremities Extremities: No deformity, No edema, Other (R calf discomfort to palpation. 2+ BL DP pulses. normal sensation and movement) - Neuro Neuro: No motor deficit, No sensory deficit Results - Vitals Vitals: Vital Signs - 24 hr 10/22/21 23:40 Temperature 36.9 C Heart Rate 89 Respiratory 15 Rate Blood Pressure 143/114 H O2 Saturation 98 Oxygen O2 Source Room air PD MEDICAL DECISION MAKING - ED course ED course: negative dvt study. counseled patient on need for f/u u/s in 1 week to completely r/o dvt. return precautions given. plan to f/u pmd. Departure - Departure Clinical Impression: Calf pain Condition: Good Instructions: ED Muscle Pain Leg Cramps Comments: You were seen in the emergency department for evaluation of R calf pain. Your dvt study (ultrasound of the veins of the leg) showed no clots. You should follow up for a repeat ultrasound in 1 week to completely rule out blood clots. Return to the ED if you have new or worsening symptoms or other concerns.
--- NOTE | 2021-10-23 01:25 | Ultrasound Report ---
PROCEDURE: Duplex Ext Veins Right INDICATIONS: R calf pain swelling X 1 d TECHNIQUE: Real-time imaging, as well as color and pulse Doppler interrogation, were performed of the lower extr emity deep veins from the inguinal ligament to the popliteal fossa. COMPARISON: None. FINDINGS: The deep veins are normally compressible, and free of intraluminal thrombus. Color and pu lse Doppler demonstrate normal phasic intraluminal flow. There is normal augmentation response to di stal compression maneuver. Limited visualization of the venous structures of the calf given inabilit y for patient to perform adequate breath-hold. IMPRESSION: Negative for deep venous thrombosis in the imaged portions of the right lower extremity. Reviewed by: Efren Williamson MD on 10/23/2021 1:24 AM PST Approved by: Efren Williamson MD on 10/23/2021 1:24 AM PST Station ID: [id number]
[2021-10-23 01:38] VITALS: BP 147/93
== END 2021-10-23 01:38 | disposition home or self-care (01) ==
LOC: ED 23:36
DX: M79.661 Pain in right lower leg (principal)
CPT/HCPCS: 99283; 99284

== ENCOUNTER 2023-03-09 12:17 | Emergency (ER) | payer OTHER ==
--- NOTE | 2023-03-09 13:06 | XRAY Report ---
PROCEDURE: Knee 4 View LT INDICATIONS: Trauma TECHNIQUE: 4 views of the left knee(s) were acquired. COMPARISON: None. FINDINGS: Bones: No fractures or dislocations. No suspicious bony lesions. Soft tissues: No knee joint effusion. No suspicious soft tissue calcifications or masses. IMPRESSION: No fracture. No osseous lesion. If symptoms and/or clinical concern for pathology persists, further a ssessment with repeat plain film radiographs (7-10 days) or advanced imaging (CT, MR, bone scan) shou ld be considered. Reviewed by: Debby Renteria MD, PhD on 03/09/2023 1:05 PM PDT Approved by: Debby Renteria MD, PhD on 03/09/2023 1:05 PM PDT Station ID: [id number]
--- NOTE | 2023-03-09 13:37 | ED Physician Documentation ---
PD HPI LOWER EXT INJURY - Stated complaint Stated Complaint: LT KNEE PX - Chief complaint Chief Complaint: Ext Problem - History obtained from History obtained from: Patient (She recently took a trip to [place] where she was exercising and walking a lot more than normal. Now for the last couple of days she has had lateral and anterior left knee pain especially when walking downstairs. 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 HEENT: Other Derm: Skin cancer surgery - Present Medications Home Medications: Ambulatory Orders Medication Instructions Recorded Confirmed Atenolol 25 mg PO DAILY 07/20/14 11/23/17 Citalopram [CeleXA] 10 mg PO DAILY 07/20/14 11/23/17 buPROPion [Wellbutrin Xl] 150 mg PO DAILY 07/20/14 11/23/17 Amoxicillin 500 mg PO Q8H #30 capsule 11/15/17 11/23/17 Cetirizine [ZyrTEC] 10 mg PO DAILY 11/23/17 11/23/17 Amox/Clav 875/125 [Augmentin] 1 each PO Q12H #20 tablet 05/15/18 Guaifenesin/Pseudoephedrne HCl 1 each PO BID PRN #20 tab.er.12h 05/15/18 [Mucinex D ER 600-60 mg Tablet] Neomycin/Polymyx/Hc Otic Drops 4 drops OT TID #1 bottle 05/09/19 [Cortisporin Ear Susp] - Allergies Allergies/Adverse Reactions: Allergies Allergy/AdvReac Type Severity Reaction Status Date / Time shellfish derived AdvReac Severe Anaphylaxis Verified 03/09/23 12:24 - Social History Does the pt smoke?: No Smoking Status: Never smoker Does the pt drink ETOH?: No Does the pt have substance abuse?: No - Immunizations Immunizations are current?: Yes - POLST Patient has POLST: No PD ED PE NORMAL - Vitals Vital signs reviewed: Yes - General General: Alert and oriented X 3, No acute distress - Derm Derm: Normal color, Warm and dry - Extremities Extremities: Other (I am unable to elicit any tenderness of the left knee. There is no effusion. She has full range of motion. ACL, PCL, LCL, MCL are intact with painless testing. Negative grind testing. Negative IT band syndrome testing. No crepitance with flexion or extension to suggest patellofemoral syndrome) - Neuro Neuro: Alert and oriented X 3, Normal speech Results - Vitals Vitals: Vital Signs - 24 hr 03/09/23 12:20 Temperature 36.1 C L Heart Rate 67 Respiratory 16 Rate Blood Pressure 104/61 O2 Saturation 100 Oxygen O2 Source Room air - Rads (name of study) X-ray of the left knee is negative/unremarkable Relevant Findings:: Final report received, EMP independent interpretation of test Departure - Departure Disposition: 01 Home, Self Care Clinical Impression: Knee pain, left Qualifiers: Chronicity: acute Qualified Code(s): M25.562 - Pain in left knee Condition: Good Record reviewed to determine appropriate education?: Yes Instructions: ED Knee Pain [facility] Follow-Up: [facility] [Provider Group] Comments: As discussed, I think the knee pain is simple overuse. Physical exam testing for ligamentous injury, IT band syndrome, meniscus injury are all negative. She take it easy for the next few days and take an NSAID such as Aleve or ibuprofen. Return for new or worsening symptoms. If pain is not resolved over the next week or so call the orthopedics office for an appointment.
[2023-03-09 13:45] VITALS: BP 110/60
== END 2023-03-09 13:43 | disposition home or self-care (01) ==
LOC: ED 12:17
DX: M25.562 Pain in left knee (principal)
CPT/HCPCS: 99283